=== PATIENT | female | born 2000 | race Two or more races ===

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

== ENCOUNTER 2018-02-20 14:50 | Emergency (ER) | payer SELFPAY ==
[~2018-02-20] VITALS: Ht 165.1 cm; Wt 89.8 kg
[~2018-02-20 14:50] MED LIST: AMOX1TAB61 PO; AZIT250T PO; HYDR-971 PO; LACT1CAP19 PO; ONDA4TAB10 SL; OXYC1TAB7 PO; PRED20TA PO; PROAIR HFA8.5 GM INH; SULF1TAB24 PO
[2018-02-20 15:22] VITALS: BP 134/66
[2018-02-20] MEDS ORDERED: ACET5SOL PO (15:39)
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
[2018-02-20] MEDS: DEXAMETHASONE SOD PHOS 4 MG/ML VIAL PO ONE (15:49)
[2018-02-20] MEDS: ACETAMINOPHEN/CODEINE 120/12MG 5 ML SOLUTION. PO ONE (15:49)
[2018-02-20] MEDS: cefTRIAXone IM 1 GM VIAL IM ONE (15:50)
[2018-02-20] MEDS ORDERED: AMOX250S20 PO (15:59)
== END 2018-02-20 16:06 | disposition home or self-care (01) ==
LOC: ER 14:50
DX: J02.9 Acute pharyngitis, unspecified (principal); J03.90 Acute tonsillitis, unspecified; R59.0 Localized enlarged lymph nodes; Z90.89 Acquired absence of other organs
CPT/HCPCS: 96372; 99283; J0696; J1100

== ENCOUNTER 2018-04-04 13:14 | Emergency (ER) | payer SELFPAY ==
[~2018-04-04] VITALS: Ht 165.1 cm; Wt 91.2 kg
[~2018-04-04 13:14] MED LIST changes: +ACET5SOL PO; +AMOX250S20 PO; +HYDR-3164 PO; -HYDR-971 PO
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
[2018-04-04 14:00] LABS: BILIRUBIN,URINE NEGATIVE (NEG); CLARITY,URINE CLEAR; COLOR,URINE YELLOW; NITRITE,URINE NEGATIVE (NEG); PROTEIN,URINE NEGATIVE (NEG-TRACE); UROBILINOGEN,URINE 0.2 mg/dL (0.2 mg/dL)
[2018-04-04] MEDS ORDERED: fentaNYL PF VIAL 100 MCG/2 ML VIAL IV ONE (14:00)
[2018-04-04] MEDS ORDERED: IV NORMAL SALINE 1000ML BAG 1,000 ML IV ONE (14:00)
[2018-04-04] MEDS ORDERED: ONDANSETRON PF 4 MG/2 ML VIAL. IM ONE (14:00)
[2018-04-04] MEDS ORDERED: CONTRAST GIVEN. MC PRN (14:00)
[2018-04-04 14:14] LABS: BACTERIA,URINE FEW /HPF (0-FEW); RBC,URINE OCC /HPF (0-2); SQUAMOUS EPITHELIAL CELL,UR MOD /LPF; WBC,URINE 0 /HPF (0-4)
[2018-04-04] MEDS ORDERED: ONDANSETRON PF 4 MG/2 ML VIAL. IV ONE (14:30)
[2018-04-04] MEDS ORDERED: IOHEXOL 300 MG/ML 100ML VIAL. IV ONE (14:30)
[2018-04-04 14:33] LABS: BASO % 0 % (0-3); EOS # 0.1 x10^3/uL (0.0-0.7); EOS % 1 % (0-3); HEMATOCRIT 35.2 % (36.0-47.0); HEMOGLOBIN 12.1 g/dL (12.0-15.5); LYMPH # 1.4 x10^3/uL (1.0-4.8); LYMPH % 13 % (24-48); MEAN CORPUSCULAR HEMOGLOBIN 29 pg (25-35); MEAN CORPUSCULAR HGB CONC 34 g/dL (31-37); MEAN CORPUSCULAR VOLUME 83 fL (79-100); MONO # 0.9 x10^3/uL (0.0-1.1); MONO % 8 % (0-9); NEUT # 8.6 x10^3uL (1.8-7.7); NEUT % 78 % (31-73); PLATELET COUNT 418 x10^3/uL (140-400); RED BLOOD COUNT 4.22 x10^6/uL (3.50-5.40); RED CELL DISTRIBUTION WIDTH 14.1 % (11.5-14.5)
[2018-04-04 14:42] LABS: PROTHROMBIN TIME PATIENT 14.4 SEC (11.7-14.0)
[2018-04-04 14:43] LABS: CALCIUM 9.5 mg/dL (8.5-10.1); CREATININE 0.7 mg/dL (0.6-1.0); GFR 107.8; POTASSIUM 3.6 mmol/L (3.5-5.1)
[2018-04-04 14:49] LABS: ALBUMIN 3.9 g/dL (3.4-5.0); ALBUMIN/GLOBULIN RATIO 0.8 (1.0-1.7); TOTAL BILIRUBIN 0.3 mg/dL (0.2-1.0); TOTAL PROTEIN 8.6 g/dL (6.4-8.2)
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
[2018-04-04] MEDS ORDERED: CYCL10TA2 PO (16:05)
[2018-04-04] MEDS ORDERED: HYDR-3164 PO (16:05)
[2018-04-04] MEDS ORDERED: ONDA4TAB7 PO (16:05)
[2018-04-04 16:15] VITALS: BP 111/62
== END 2018-04-04 16:17 | disposition home or self-care (01) ==
LOC: ER 13:14
DX: S62.174A Nondisplaced fracture of trapezium [larger multangular], right wrist, initial encounter for closed fracture (principal); S16.1XXA Strain of muscle, fascia and tendon at neck level, initial encounter; S80.02XA Contusion of left knee, initial encounter; S80.01XA Contusion of right knee, initial encounter; R10.84 Generalized abdominal pain; R11.2 Nausea with vomiting, unspecified; Z90.89 Acquired absence of other organs; V47.6XXA Car passenger injured in collision with fixed or stationary object in traffic accident, initial encounter; Y93.89 Activity, other specified; Y92.410 Unspecified street and highway as the place of occurrence of the external cause; Y99.8 Other external cause status
CPT/HCPCS: 29125; 36415; 72040; 73130; 74177; 80053; 81001; 81025; 85025; 85610; 87070; 87880; 96361; 96374; 96375; 99284; J2405; J3010; J7030; Q9967

== ENCOUNTER 2018-06-09 13:04 | Emergency (ER) | payer SELFPAY ==
[~2018-06-09] VITALS: Ht 165.1 cm; Wt 88.0 kg
[~2018-06-09 13:04] MED LIST changes: +ALBU2.5V8 INH; +CYCL10TA2 PO; +ONDA4TAB7 PO; -PROAIR HFA8.5 GM INH
[2018-06-09 13:09] VITALS: BP 135/86
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
[2018-06-09] MEDS ORDERED: IBUPROFEN 600 MG TABLET. PO ONE (13:30)
[2018-06-09] MEDS ORDERED: DEXAMETHASONE SOD PHOS 20 MG/5 ML VIAL. PO ONE (13:30)
[2018-06-09] MEDS ORDERED: ACETAMINOPHEN 500 MG TABLET PO ONE (13:30)
[2018-06-09 13:42] LABS: BILIRUBIN,URINE SMALL (NEG); CLARITY,URINE CLEAR; COLOR,URINE YELLOW; NITRITE,URINE NEGATIVE (NEG); PROTEIN,URINE 30 mg/dL (NEG-TRACE); UROBILINOGEN,URINE 0.2 mg/dL (0.2 mg/dL)
[2018-06-09 13:49] LABS: BACTERIA,URINE FEW /HPF (0-FEW); RBC,URINE OCC /HPF (0-2); SQUAMOUS EPITHELIAL CELL,UR OCC /LPF
[2018-06-09 14:01] LABS: INFLUENZA A PATIENT NEGATIVE (NEGATIVE); INFLUENZA B PATIENT NEGATIVE (NEGATIVE)
[2018-06-09] MEDS ORDERED: PRED20TA PO ×2 (14:26→14:28)
[2018-06-09] MEDS ORDERED: PENICILLIN G BENZATHINE LA 1,200,000 UNIT/2 ML DISP.SYRIN. IM ONE (14:30)
== END 2018-06-09 15:10 | disposition home or self-care (01) ==
LOC: ER 13:04
DX: J02.9 Acute pharyngitis, unspecified (principal); R53.83 Other fatigue; M79.18 Myalgia, other site; Z90.89 Acquired absence of other organs
CPT/HCPCS: 81001; 81025; 87070; 87804; 87880; 96372; 99284; J0561; J1100

== ENCOUNTER 2018-07-16 10:51 | Emergency (ER) | payer SELFPAY ==
[~2018-07-16] VITALS: Ht 162.6 cm; Wt 88.5 kg
[2018-07-16 11:20] VITALS: BP 118/78
[2018-07-16 11:57] LABS: BILIRUBIN,URINE NEGATIVE (NEG); CLARITY,URINE CLEAR; COLOR,URINE YELLOW; NITRITE,URINE NEGATIVE (NEG); PH,URINE 6.5; PROTEIN,URINE NEGATIVE (NEG-TRACE); UROBILINOGEN,URINE 0.2 mg/dL (0.2 mg/dL)
[2018-07-16] MEDS ORDERED: ONDANSETRON ODT 4 MG TAB.RAPDIS. PO ONE (12:00)
[2018-07-16] MEDS ORDERED: ACETAMINOPHEN 500 MG TABLET PO ONE (12:00)
[2018-07-16 12:06] LABS: BACTERIA,URINE MANY /HPF (0-FEW); SQUAMOUS EPITHELIAL CELL,UR MANY /LPF
[2018-07-16 12:17] LABS: INFLUENZA A PATIENT NEGATIVE (NEGATIVE); INFLUENZA B PATIENT NEGATIVE (NEGATIVE)
--- NOTE | 2018-07-16 12:53 | RAD ---
EXAM: Chest, 2 views. HISTORY: Fever. Flulike symptoms. COMPARISON: None. FINDINGS: 2 views of the chest are obtained. There is no infiltrate, pleural effusion or pneumothorax. The heart is normal in size. IMPRESSION: No acute pulmonary finding. Electronically signed by: Esperanza Reeves MD (07/16/2018 12:50 PM) [facility]
[2018-07-16] MEDS ORDERED: cefTRIAXone IM 250 MG VIAL IM ONE (14:00)
[2018-07-16] MEDS ORDERED: AZITHROMYCIN 250 MG TABLET. PO ONE (14:00)
--- NOTE | 2018-07-16 14:23 | PHYS DOC ---
Past Medical History Past Medical History: Other Additional Past Medical Histor: childhood asthma; MISCARRIAGE 04/2016 Past Surgical History: Appendectomy Alcohol Use: Occasionally Drug Use: Marijuana Adult General Chief Complaint Chief Complaint: FLU SYMPTOM HPI HPI Patient is a 17 year old female with no significant medical history who presents to the ED today complaining of subjective fevers, body aches, chills, cough and sore throat, symptoms for 4 days. Review of Systems Review of Systems Constitutional: Reports subjective fevers, body aches and chills Eyes: Denies change in visual acuity, redness, or eye pain [] HENT: Reports sore throat. Denies nasal congestion Respiratory: Reports cough, denies shortness of breath [] Cardiovascular: No additional information not addressed in HPI [] GI: Denies abdominal pain, nausea, vomiting, bloody stools or diarrhea [] : Denies dysuria or hematuria [] Musculoskeletal: Denies back pain or joint pain [] Integument: Denies rash or skin lesions [] Neurologic: Denies headache, focal weakness or sensory changes [] All other systems were reviewed and found to be within normal limits, except as documented in this note. Current Medications Current Medications Current Medications Medications (Trade) Dose Ordered Sig/Delia Start Time Stop Time Status Last Admin Dose Admin Acetaminophen (Tylenol) 1,000 mg 1X ONCE 07/16/18 12:00 07/16/18 12:01 DC 07/16/18 12:17 1,000 MG Azithromycin (Zithromax) 1,000 mg 1X ONCE 07/16/18 14:00 07/16/18 14:01 DC 07/16/18 13:58 1,000 MG Ceftriaxone Sodium (Rocephin Im) 250 mg 1X ONCE 07/16/18 14:00 07/16/18 14:01 DC 07/16/18 13:58 250 MG Ondansetron HCl (Zofran Odt) 4 mg 1X ONCE 07/16/18 12:00 07/16/18 12:01 DC 07/16/18 12:18 4 MG Allergies Allergies Allergies Coded Allergies Type Severity Reaction Last Updated Verified No Known Drug Allergies 09/23/15 No Physical Exam Physical Exam Constitutional: Well developed, well nourished, no acute distress, non-toxic appearance. [] HENT: Normocephalic, atraumatic, bilateral external ears normal, oropharynx moist, no oral exudates, nose normal. [] Eyes: PERRLA, EOMI, conjunctiva normal, no discharge. [] Neck: Normal range of motion, no tenderness, supple, no stridor. [] Cardiovascular:Heart rate regular rhythm, no murmur [] Lungs & Thorax: Bilateral breath sounds clear to auscultation [] Abdomen: Bowel sounds normal, soft, no tenderness, no masses, no pulsatile masses. [] Skin: Warm, dry, no erythema, no rash. [] Back: No tenderness, no CVA tenderness. [] Extremities: No tenderness, no cyanosis, no clubbing, ROM intact, no edema. [] Neurologic: Alert and oriented X 3, normal motor function, normal sensory function, no focal deficits noted. [] Psychologic: Affect normal, judgement normal, mood normal. [] Current Patient Data Vital Signs Vital Signs Date Time Temp Pulse Resp B/P (MAP) Pulse Ox O2 Delivery O2 Flow Rate FiO2 07/16/18 11:20 102.2 126 20 118/78 (91) 98 Room Air 102.2 Lab Values Laboratory Tests Test 07/16/18 11:41 07/16/18 11:42 07/16/18 11:45 07/16/18 11:48 Urine Collection Type Unknown Urine Color Yellow Urine Clarity Clear Urine pH 6.5 Urine Specific [place] 1.015 Urine Protein Negative mg/dL (NEG-TRACE) Urine Glucose (UA) Negative mg/dL (NEG) Urine Ketones (Stick) Negative mg/dL (NEG) Urine Blood Moderate (NEG) Urine Nitrite Negative (NEG) Urine Bilirubin Negative (NEG) Urine Urobilinogen Dipstick 0.2 mg/dL (0.2 mg/dL) Urine Leukocyte Esterase Small (NEG) Urine RBC 6-10 /HPF (0-2) Urine WBC 5-10 /HPF (0-4) Urine Squamous Epithelial Cells Many /LPF Urine Bacteria Many /HPF (0-FEW) Urine Mucus Mod /LPF POC Urine HCG, Qualitative Hcg negative (Negative) Influenza Type A Antigen Negative (NEGATIVE) Influenza Type B Antigen Negative (NEGATIVE) Group A Streptococcus Rapid Negative (NEGATIVE) EKG EKG [] Radiology/Procedures Radiology/Procedures [] Course & Med Decision Making Course & Med Decision Making Pertinent Labs and Imaging studies reviewed. (See chart for details) This is a 17-year-old. Presenting to the ED today complaining of fever, body aches, chills, cough, sore throat symptoms for 4 days, temperature on arrival to the ED 102.2. Patient was given 1 g of Tylenol. Negative influenza A or B, negative chest x-ray, urine analysis appears contaminated. When I went to give patient results, she states she received a letter informing her she has chlamydia and was not treated. Patient was given standard STD treatment for chlamydia. She was instructed to contact all her partners and ask them to seek treatment too. Follow-up with her PCP as needed. Dragon Disclaimer Dragon Disclaimer This electronic medical record was generated, in whole or in part, using a voice recognition dictation system. Departure Departure Impression: Primary Impression: Fever Additional Impressions: Cough Body aches Acute viral pharyngitis Sexually transmitted disease (STD) Disposition: 01 HOME, SELF-CARE Condition: STABLE Referrals: UNKNOWN PCP NAME (PCP) follow up with your doctor in 1-2 weeks Patient Instructions: Cough, Adult, Fever, Adult, Sexually Transmitted Disease , Viral Pharyngitis Additional Instructions: You were seen for viral-like illness including body aches, sore throat, fever, cough. This symptoms will run their own course. You were also treated for chlamydia, as discussed you cannot have sex for one week, you must contact all your sex partners, let them know you were treated for STDs and ask them to seek treatment too. Follow-up with your doctor in 1-2 weeks as needed. Problem Qualifiers Primary Impression: Fever Fever type: unspecified Qualified Codes: R50.9 - Fever, unspecified WAI SYLVESTER APRN Jul 16, 2018 14:23
== END 2018-07-16 14:40 | disposition home or self-care (01) ==
LOC: ER 10:51
DX: J02.8 Acute pharyngitis due to other specified organisms (principal); B97.89 Other viral agents as the cause of diseases classified elsewhere; M79.18 Myalgia, other site; R50.9 Fever, unspecified; A64 Unspecified sexually transmitted disease; Z90.89 Acquired absence of other organs
CPT/HCPCS: 71046; 81001; 81025; 87070; 87086; 87804; 87880; 96372; 99284; J0696; Q0144; Q0162

== ENCOUNTER 2019-01-14 11:28 | Emergency (ER) | payer SELFPAY ==
[~2019-01-14] VITALS: Ht 162.6 cm; Wt 88.5 kg
[2019-01-14 13:50] VITALS: BP 126/61
[2019-01-14 14:10] LABS: BILIRUBIN,URINE NEGATIVE (NEG); CLARITY,URINE CLEAR; COLOR,URINE YELLOW; NITRITE,URINE NEGATIVE (NEG); PROTEIN,URINE NEGATIVE (NEG-TRACE); UROBILINOGEN,URINE 0.2 mg/dL (0.2 mg/dL)
[2019-01-14 14:20] LABS: BACTERIA,URINE FEW /HPF (0-FEW); RBC,URINE RARE /HPF (0-2); SQUAMOUS EPITHELIAL CELL,UR MOD /LPF; WBC,URINE OCC /HPF (0-4)
--- NOTE | 2019-01-14 15:04 | PHYS DOC ---
Past Medical History Past Medical History: Asthma, Other Additional Past Medical Histor: MISCARRIAGE 04/2016 Past Surgical History: Appendectomy Alcohol Use: Occasionally Drug Use: Marijuana Adult General Chief Complaint Chief Complaint: ABDOMINAL PAIN HPI HPI Patient is a 18 year old female who presents to the ED today requesting a test, patient states she has not had a cycle for 2 months. She states occasionally she has lower abdominal pain. Denies any unusual vaginal discharge and concern for STDs. Review of Systems Review of Systems Constitutional: Denies fever or chills [] Eyes: Denies change in visual acuity, redness, or eye pain [] HENT: Denies nasal congestion or sore throat [] Respiratory: Denies cough or shortness of breath [] Cardiovascular: No additional information not addressed in HPI [] GI: Reports concern for , lack of menstrual cycle, lower abdominal pain, denies nausea, vomiting, bloody stools or diarrhea [] : Denies dysuria or hematuria [] Musculoskeletal: Denies back pain or joint pain [] Integument: Denies rash or skin lesions [] Neurologic: Denies headache, focal weakness or sensory changes [] All other systems were reviewed and found to be within normal limits, except as documented in this note. Allergies Allergies Allergies Coded Allergies Type Severity Reaction Last Updated Verified No Known Drug Allergies 09/23/15 No Physical Exam Physical Exam Constitutional: Well developed, well nourished, no acute distress, non-toxic appearance. [] HENT: Normocephalic, atraumatic, bilateral external ears normal, oropharynx m oist, no oral exudates, nose normal. [] Eyes: PERRLA, EOMI, conjunctiva normal, no discharge. [] Neck: Normal range of motion, no tenderness, supple, no stridor. [] Cardiovascular:Heart rate regular rhythm, no murmur [] Lungs & Thorax: Bilateral breath sounds clear to auscultation [] Abdomen: Bowel sounds normal, soft, no tenderness, no masses, no pulsatile masses. [] Skin: Warm, dry, no erythema, no rash. [] Back: No tenderness, no CVA tenderness. [] Extremities: No tenderness, no cyanosis, no clubbing, ROM intact, no edema. [] Neurologic: Alert and oriented X 3, normal motor function, normal sensory function, no focal deficits noted. [] Psychologic: Affect normal, judgement normal, mood normal. [] Current Patient Data Vital Signs Vital Signs Date Time Temp Pulse Resp B/P (MAP) Pulse Ox O2 Delivery O2 Flow Rate FiO2 01/14/19 13:50 98.0 85 16 126/61 (82) 97 Room Air 98.0 Lab Values Laboratory Tests Test 01/14/19 13:45 01/14/19 13:52 Urine Collection Type Unknown Urine Color Yellow Urine Clarity Clear Urine pH 7.0 Urine Specific [place] 1.015 Urine Protein Negative mg/dL (NEG-TRACE) Urine Glucose (UA) Negative mg/dL (NEG) Urine Ketones (Stick) Negative mg/dL (NEG) Urine Blood Negative (NEG) Urine Nitrite Negative (NEG) Urine Bilirubin Negative (NEG) Urine Urobilinogen Dipstick 0.2 mg/dL (0.2 mg/dL) Urine Leukocyte Esterase Negative (NEG) Urine RBC Rare /HPF (0-2) Urine WBC Occ /HPF (0-4) Urine Squamous Epithelial Cells Mod /LPF Urine Bacteria Few /HPF (0-FEW) Urine Mucus Slight /LPF POC Urine HCG, Qualitative Hcg negative (Negative) EKG EKG [] Radiology/Procedures Radiology/Procedures [] Course & Med Decision Making Course & Med Decision Making Pertinent Labs and Imaging studies reviewed. (See chart for details) This is a 18-year-old female patient who presents to the ED today requesting a test, she has not had a cycle for 2 months. Urine hCG is negative, urine analysis is negative for infection. Discharged to home. Provided GATHERING MACHINE SETTER to follow-up with. Alicia Disclaimer Alicia Disclaimer This electronic medical record was generated, in whole or in part, using a voice recognition dictation system. Departure Departure Impression: Primary Impression: Amenorrhea, secondary Additional Impression: test negative Disposition: HOME, SELF-CARE Condition: STABLE Referrals: UNKNOWN PCP NAME (PCP) STEFFANIE LAND MD follow up next week Patient Instructions: Athletic Amenorrhea-[facility] Additional Instructions: Your test in the emergency room is negative. Please follow-up with the GATHERING MACHINE SETTER provided concerning your menstrual cycles. Problem Qualifiers CASSANDRAQUINTONDanielleWAI ELMER Jan 14, 2019 15:04
== END 2019-01-14 15:16 | disposition home or self-care (01) ==
LOC: ER 11:28
DX: Z32.02 Encounter for pregnancy test, result negative (principal); N91.2 Amenorrhea, unspecified; J45.909 Unspecified asthma, uncomplicated; Z90.89 Acquired absence of other organs
CPT/HCPCS: 81001; 81025; 99283

== ENCOUNTER 2019-03-04 13:12 | Emergency (ER) | payer SELFPAY ==
[~2019-03-04] VITALS: Ht 162.6 cm; Wt 93.4 kg
[2019-03-04 14:22] VITALS: BP 134/62
--- NOTE | 2019-03-04 15:19 | PHYS DOC ---
Past Medical History Past Medical History: Asthma, Other Additional Past Medical Histor: MISCARRIAGE 04/2016 Past Surgical History: Appendectomy Alcohol Use: Occasionally Drug Use: Marijuana Adult General Chief Complaint Chief Complaint: MULTIPLE COMPLAINTS [facility] Patient is a 18 year old female, accompanied by her significant other, who presents to the emergency room with complaints of diarrhea and a fever at home for the last 2 days. Patient reports concern because she states she just found out she is . She denies any vaginal bleeding, abdominal pain, dysuria, hematuria, or irregular vaginal discharge. Patient states she has also had nausea and vomiting for several days. She has been able to tolerate Gatorade and crackers. Patient denies any cough, shortness of breath, wheezing, dizziness, dysuria, hematuria, or low back pain. She reports her last menstrual cycle was in January of 2019. All other ROS is neg unless otherwise noted in HPI. Review of Systems Review of Systems See Above Allergies Allergies Allergies Coded Allergies Type Severity Reaction Last Updated Verified No Known Drug Allergies 09/23/15 No Physical Exam Physical Exam See Above Constitutional: Well developed, well nourished, no acute distress, non-toxic appearance. [] HENT: Normocephalic, atraumatic, bilateral external ears normal, oropharynx moist, moist mucous membranes no oral exudates, nose normal. [] Eyes: PERRLA, EOMI, conjunctiva normal, no discharge. [] Neck: Normal range of motion, no tenderness, supple, no stridor. [] Cardiovascular:Heart rate regular rhythm, no murmur [] Lungs & Thorax: Bilateral breath sounds clear to auscultation [] Skin: Warm, dry, no erythema, no rash. [] Back: No tenderness Extremities: No cyanosis, ROM intact Neurologic: Alert and oriented X 3, no focal deficits noted. [] Psychologic: Affect normal, judgement normal, mood normal. [] Current Patient Data Vital Signs Vital Signs Date Time Temp Pulse Resp B/P (MAP) Pulse Ox O2 Delivery O2 Flow Rate FiO2 03/04/19 14:22 98.8 70 20 134/62 (86) 100 Room Air 98.8 EKG EKG [] Radiology/Procedures Radiology/Procedures [] Course & Med Decision Making Course & Med Decision Making Pertinent Labs and Imaging studies reviewed. (See chart for details) dx: medical screening exam A medical screening exam was performed, patient was found to have no emergent medical condition. The plan of care would've included diet instructions and a prescription for zofran. Pt was eating ice chips in the room with no vomiting . However, the patient eloped. [] Dragon Disclaimer Dragon Disclaimer This electronic medical record was generated, in whole or in part, using a voice recognition dictation system. Departure Departure Impression: Primary Impression: Encounter for medical screening examination Disposition: HOME, SELF-CARE Condition: STABLE Referrals: UNKNOWN PCP NAME (PCP) BENJIE PENG COTTON WASHER Mar 04, 2019 15:19
== END 2019-03-04 14:45 | disposition home or self-care (01) ==
LOC: ER 13:12
DX: O21.9 Vomiting of pregnancy, unspecified (principal); R19.7 Diarrhea, unspecified; R50.9 Fever, unspecified; O99.511 Diseases of the respiratory system complicating pregnancy, first trimester; J45.909 Unspecified asthma, uncomplicated; Z90.89 Acquired absence of other organs; Z3A.00 Weeks of gestation of pregnancy not specified
CPT/HCPCS: 99283

== ENCOUNTER 2019-05-16 00:33 | Inpatient (IN) | payer OTHER ==
[~2019-05-16] VITALS: Ht 162.6 cm; Wt 96.6 kg
[2019-05-16] MEDS ORDERED: diphenhydrAMINE 50 MG/ML VIAL IVP ONE (02:30)
[2019-05-16] MEDS ORDERED: METOCLOPRAMIDE HCL 10 MG/2 ML VIAL. IVP ONE (02:30)
[2019-05-16] MEDS ORDERED: IV NORMAL SALINE 1000ML BAG 1,000 ML IV SCH (02:30)
[2019-05-16 02:57] LABS: BASO % 0 % (0-3); EOS % 0 % (0-3); HEMATOCRIT 32.4 % (36.0-47.0); LYMPH # 1.7 x10^3/uL (1.0-4.8); LYMPH % 12 % (24-48); MEAN CORPUSCULAR HEMOGLOBIN 29 pg (25-35); MEAN CORPUSCULAR HGB CONC 34 g/dL (31-37); MEAN CORPUSCULAR VOLUME 85 fL (79-100); MONO # 0.5 x10^3/uL (0.0-1.1); MONO % 4 % (0-9); NEUT # 11.9 x10^3/uL (1.8-7.7); NEUT % 84 % (31-73); PLATELET COUNT 458 x10^3/uL (140-400); RED BLOOD COUNT 3.81 x10^6/uL (3.50-5.40); WHITE BLOOD COUNT 14.2 x10^3/uL (4.0-11.0)
[2019-05-16 03:13] LABS: CALCIUM 9.3 mg/dL (8.5-10.1); CREATININE 0.4 mg/dL (0.6-1.0); GFR 203.5; POTASSIUM 3.6 mmol/L (3.5-5.1)
[2019-05-16 03:19] LABS: ALBUMIN 3.2 g/dL (3.4-5.0); ALBUMIN/GLOBULIN RATIO 0.7 (1.0-1.7); TOTAL BILIRUBIN 0.2 mg/dL (0.2-1.0); TOTAL PROTEIN 7.5 g/dL (6.4-8.2)
--- NOTE | 2019-05-16 03:50 | PHYS DOC ---
Past Medical History Past Medical History: Asthma, Other Additional Past Medical Histor: MISCARRIAGE 04/2016 Past Surgical History: Appendectomy Alcohol Use: Occasionally Drug Use: Marijuana Adult General Chief Complaint Chief Complaint: VOMITING IN HPI HPI Patient is a 18 year old female who presents with complaint of nausea and vomiting for the last few weeks. Patient states that over the last 24-hour she has thrown up at least 20 times. Patient states that she was seen yesterday, was given some Zofran and then discharged home. Patient states that she has been taking the medication at home but has not been able to keep anything down despite taking medication. She states that she has tried water, Sprite, tucker olesya, etc. without been able to keep anything down. She states that she is starting to get sore in her upper abdomen from all the throwing up. She denies any pelvic pain or vaginal bleeding.[] Review of Systems Review of Systems Constitutional: Denies fever or chills [] Respiratory: Denies cough or shortness of breath [] Cardiovascular: No additional information not addressed in HPI [] GI: Lit's of nausea and vomiting without diarrhea [] : Denies dysuria or hematuria [] Neurologic: Denies headache, focal weakness or sensory changes [] All other systems were reviewed and found to be within normal limits, except as documented in this note. Current Medications Current Medications Current Medications Medications (Trade) Dose Ordered Sig/Delia Start Time Stop Time Status Last Admin Dose Admin Diphenhydramine HCl (Benadryl) 25 mg 1X ONCE 05/16/19 02:30 05/16/19 02:31 DC 05/16/19 02:49 25 MG Metoclopramide HCl (Reglan Vial) 10 mg 1X ONCE 05/16/19 02:30 05/16/19 02:31 DC 05/16/19 02:50 10 MG Sodium Chloride 1,000 ml @ 1,000 mls/hr Q1H 05/16/19 02:30 05/16/19 03:29 DC 05/16/19 02:30 1,000 MLS/HR Allergies Allergies Allergies Coded Allergies Type Severity Reaction Last Updated Verified No Known Drug Allergies 09/23/15 No Physical Exam Physical Exam Constitutional: Well developed, well nourished, no acute distress, non-toxic appearance. [] HENT: Normocephalic, atraumatic, bilateral external ears normal, oropharynx moist, no oral exudates, nose normal. [] Eyes: PERRLA, EOMI, conjunctiva normal, no discharge. [] Neck: Normal range of motion, no tenderness, supple, no stridor. [] Cardiovascular: Regular rate and rhythm[] Lungs & Thorax: Bilateral breath sounds clear to auscultation [] Abdomen: Bowel sounds normal, soft, with epigastric tenderness. [] Skin: Warm, dry, no erythema, no rash. [] Extremities: No tenderness, no cyanosis, no clubbing, ROM intact, no edema. [] Neurologic: Alert and oriented X 3, no focal deficits noted. [] Current Patient Data Vital Signs Vital Signs Date Time Temp Pulse Resp B/P (MAP) Pulse Ox O2 Delivery O2 Flow Rate FiO2 05/16/19 02:02 97.5 105 14 133/70 (91) 100 Room Air 97.5 Lab Values Laboratory Tests Test 05/16/19 02:50 White Blood Count 14.2 x10^3/uL (4.0-11.0) H Red Blood Count 3.81 x10^6/uL (3.50-5.40) Hemoglobin 11.0 g/dL (12.0-15.5) L Hematocrit 32.4 % (36.0-47.0) L Mean Corpuscular Volume 85 fL (79-100) Mean Corpuscular Hemoglobin 29 pg (25-35) Mean Corpuscular Hemoglobin Concent 34 g/dL (31-37) Red Cell Distribution Width 14.0 % (11.5-14.5) Platelet Count 458 x10^3/uL (140-400) H Neutrophils (%) (Auto) 84 % (31-73) H Lymphocytes (%) (Auto) 12 % (24-48) L Monocytes (%) (Auto) 4 % (0-9) Eosinophils (%) (Auto) 0 % (0-3) Basophils (%) (Auto) 0 % (0-3) Neutrophils # (Auto) 11.9 x10^3/uL (1.8-7.7) H Lymphocytes # (Auto) 1.7 x10^3/uL (1.0-4.8) Monocytes # (Auto) 0.5 x10^3/uL (0.0-1.1) Eosinophils # (Auto) 0.0 x10^3/uL (0.0-0.7) Basophils # (Auto) 0.0 x10^3/uL (0.0-0.2) Sodium Level 139 mmol/L (136-145) Potassium Level 3.6 mmol/L (3.5-5.1) Chloride Level 102 mmol/L (98-107) Carbon Dioxide Level 25 mmol/L (21-32) Anion Gap 12 (6-14) Blood Urea Nitrogen 5 mg/dL (7-20) L Creatinine 0.4 mg/dL (0.6-1.0) L Estimated GFR (Cockcroft-Gault) 203.5 BUN/Creatinine Ratio 13 (6-20) Glucose Level 92 mg/dL (70-99) Calcium Level 9.3 mg/dL (8.5-10.1) Total Bilirubin 0.2 mg/dL (0.2-1.0) Aspartate Amino Transferase (AST) 8 U/L (15-37) L Alanine Aminotransferase (ALT) 16 U/L (14-59) Alkaline Phosphatase 59 U/L (46-116) Total Protein 7.5 g/dL (6.4-8.2) Albumin 3.2 g/dL (3.4-5.0) L Albumin/Globulin Ratio 0.7 (1.0-1.7) L Lipase 68 U/L (73-393) L Laboratory Tests 05/16/19 02:50 Laboratory Tests 05/16/19 02:50 EKG EKG [] Radiology/Procedures Radiology/Procedures [] Course & Med Decision Making Course & Med Decision Making Pertinent Labs and Imaging studies reviewed. (See chart for details) [] Dragon Disclaimer Dragon Disclaimer This electronic medical record was generated, in whole or in part, using a voice recognition dictation system. Departure Departure Impression: Primary Impression: Hyperemesis gravidarum Disposition: ADMITTED INPATIENT Condition: IMPROVED Referrals: UNKNOWN PCP NAME (PCP) MORELIA SWAN Jr. DO May 16, 2019 03:50
[2019-05-16] MEDS ORDERED: ONDANSETRON PF 4 MG/2 ML VIAL. IV PRN ×2 (04:00→04:30)
[2019-05-16] MEDS ORDERED: IV RINGERS,LACTATED 1000ML 1,000 ML IV ONE ×2 (04:00→04:30)
--- NOTE | 2019-05-16 04:30 | NUR ---
The patient, MARI JUNIOR, 18 y/o, F admitted by NANO NEIL Jr, MD, was given information regarding hospital policies, unit procedures and contact persons. Valuables were checked and left with patient. patient is resting with call light within reach and family at bedside.
[2019-05-16] MEDS: IV RINGERS,LACTATED 1000ML 1,000 ML IV SCH ×2 (05:00→08:37)
[2019-05-16] MEDS ORDERED: ONDANSETRON PF 4 MG/2 ML VIAL. IVP PRN ×2 (05:00→05:30)
[2019-05-16] MEDS ORDERED: METOCLOPRAMIDE HCL 10 MG/2 ML VIAL. IVP PRN (05:00)
[2019-05-16] MEDS ORDERED: ONDANSETRON ODT 4 MG TAB.RAPDIS. PO PRN (05:00)
[2019-05-16 05:20] VITALS: BP 116/72
[2019-05-16] MEDS: ACETAMINOPHEN 500 MG TABLET PO PRN ×2 (10:15→16:10)
[2019-05-16 11:23] VITALS: BP 103/59
--- NOTE | 2019-05-16 14:41 | PDOC1 ---
OB - History Hx of Present Care: Limited Care Ultrasounds: Other (nml first trimester sono) Obstetrical Complications: Hyperemesis Medical Complications: None Past Family/Social History * Past Medical, Surgical, Family and Obstetric Histories reviewed from chart. Rubella: Immune RPR/VDRL: Negative GBS Status: Unknown HBsAG: Negative OB - Chief Complaint & HPI Date of Admission: Date of Admission: May 16, 2019 at 03:48 Chief Complaint/History : 2 Para: 0 EGA: 14 Reason for admission: observation, other (Hyperemesis ) Admission Nurse Assessment Rev: Yes OB - Admission Exam Physical Exam Vitals: VS - Last 72 Hours, by Label Date Time Temp Pulse Resp B/P (MAP) Pulse Ox O2 Delivery O2 Flow Rate FiO2 05/16/19 11:23 98.4 87 16 103/59 (74) 98 Room Air 98.4 05/16/19 05:20 97.8 94 18 116/72 (87) 99 Room Air 97.8 05/16/19 02:28 105 14 173/66 (101) 98 Room Air 05/16/19 02:02 97.5 105 14 133/70 (91) 100 Room Air 97.5 HEENT: Other (mucous membranes dry) Lungs: Clear Abdomen: Gravid, Non tender, Soft Extremities: No tenderness or swelling Reflexes: Normal Cervical Dilatation: None Effacement: 0% Station: Ballotable Membranes: Intact Heart Rate: Normal Accelerations: Accelerations Present Decelerations: No decelerations Contractions on Admission: None Text A: 14 wks IUP Hyperemesis Gravidarum P: Observation and rehydration IV fluids. D/c home when tolerating regular diet. NANO NEIL Jr, MD May 16, 2019 14:41
[2019-05-16] MEDS ORDERED: ONDA4VIA7 PO (14:44)
[2019-05-16] MEDS ORDERED: METO5VIA4 PO (14:44)
--- NOTE | 2019-05-16 14:44 | DISCH ---
DISCHARGE INSTRUCTIONS Condition on Discharge Condition on Discharge: Stable Activity After Discharge Activity Instructions for Disc: Activity as tolerated Lifting Instructions after Dis: No heavy lifting Exercise Instruction after Dis: Progress as tolerated Driving Instructions after Dis: Do not drive today Weight Bearing Status after Di: As tolerated Diet after Discharge Diet after Discharge: Regular Diet Texture: Regular Wound Incision Care Wound/Incision Care: May get incision wet Contacting the DRAlyce after DC Call your doctor for: If your condition worsens Follow-Up Follow up with: Dr. Hudson in 2 wks Treatment/Equipment after DC Adaptive Equipment Issued: None NANO HUDSON Jr, MD May 16, 2019 14:44
[2019-05-16 16:23] VITALS: BP 102/67
--- NOTE | 2019-05-16 16:25 | NUR ---
Discharge Discharge instructions given to patient at this time. NO questions or concerns noted. To follow up with DR Hudson in 2 weeks. Patient to have dinner then discharge home with family. Will continue to monitor.
== END 2019-05-16 17:39 | disposition home or self-care (01) | DRG 833 ==
LOC: ER 00:33 → 3 NORTH 03:48 → ER 04:13 → 3 NORTH 14:18
PROVIDERS: ADMIT Obstetrics & Gynecology; ATTEND Obstetrics & Gynecology
DX: O21.0 Mild hyperemesis gravidarum (principal); Z3A.14 14 weeks gestation of pregnancy; J45.909 Unspecified asthma, uncomplicated; O99.511 Diseases of the respiratory system complicating pregnancy, first trimester; Z90.49 Acquired absence of other specified parts of digestive tract
CPT/HCPCS: 36415; 80053; 83690; 85025; 96361; 96374; 96375; J1200; J2405; J2765; J7030; J7120; 99285-25; G0378

== ENCOUNTER 2019-06-03 04:59 | Emergency (ER) | payer OTHER ==
[~2019-06-03] VITALS: Ht 162.6 cm; Wt 96.8 kg
[~2019-06-03 04:59] MED LIST changes: +METO5VIA4 PO; +ONDA4VIA7 PO
--- NOTE | 2019-06-03 05:19 | PHYS DOC ---
Past Medical History Past Medical History: Asthma, Other Additional Past Medical Histor: MISCARRIAGE 04/2016 (TAHIR BRANDT DO) Past Surgical History: Appendectomy (TAHIR BRANDT DO) Smoking Status: Never Smoker Alcohol Use: Occasionally Drug Use: Marijuana (TAHIR BRANDT DO) Adult General Chief Complaint Chief Complaint: VOMITING IN HPI HPI 18-year-old female A1 who is approximate 17 weeks presents with a chief complaint of nausea and vomiting. Patient states she has been vomiting her entire . States this evening had some bright red blood in her emesis. Patient denies any vaginal bleeding. Patient also states she has had suicidal thoughts. Patient states the father of her baby contacted her this evening. She states she has not spoke to him during the entire . Patient states she is suicidal but does not have a plan. She states she has a history of bipolar and has been admitted to psychiatric facility. Patient denies any previous suicidal attempts. (TAHIR BRANDT DO) Review of Systems Review of Systems Constitutional: Denies fever or chills [] Eyes: Denies change in visual acuity, redness, or eye pain [] HENT: Denies nasal congestion or sore throat [] Respiratory: Denies cough or shortness of breath [] Cardiovascular: No additional information not addressed in HPI [] GI: Denies abdominal pain, Positive nausea andvomiting, No bloody stools or diarrhea [] : Denies dysuria or hematuria [Positive ] Musculoskeletal: Denies back pain or joint pain [] Integument: Denies rash or skin lesions [] Neurologic: Denies headache, focal weakness or sensory changes [] Endocrine: Denies polyuria or polydipsia [] Psych- Positive SI All other systems were reviewed and found to be within normal limits, except as documented in this note. (TAHIR BRANDT DO) Current Medications Current Medications Current Medications Medications (Trade) Dose Ordered Sig/Delia Start Time Stop Time Status Last Admin Dose Admin Acetaminophen (Tylenol) 1,000 mg 1X ONCE 06/03/19 07:15 06/03/19 07:16 DC 06/03/19 07:08 1,000 MG Ondansetron HCl (Zofran) 4 mg 1X ONCE 06/03/19 05:30 06/03/19 05:31 DC 06/03/19 05:29 4 MG Sodium Chloride 1,000 ml @ 1,000 mls/hr 1X ONCE 06/03/19 07:00 06/03/19 07:59 DC 06/03/19 07:08 1,000 MLS/HR (SEBASTIÁN LOPES MD) Allergies Allergies Allergies Coded Allergies Type Severity Reaction Last Updated Verified No Known Drug Allergies 09/23/15 No (SEBASTIÁN LOPES MD) Physical Exam Physical Exam Constitutional: Well developed, well nourished, no acute distress, non-toxic appearance. [] HENT: Normocephalic, atraumatic, bilateral external ears normal, oropharynx moist, no oral exudates, nose normal. [] Eyes: PERRLA, EOMI, conjunctiva normal, no discharge. [] Neck: Normal range of motion, no tenderness, supple, no stridor. [] Cardiovascular:tachycardia Lungs & Thorax: Bilateral breath sounds clear to auscultation [] Abdomen: Bowel sounds normal, soft, no tenderness, no masses, no pulsatile masses. [] Skin: Warm, dry, no erythema, no rash. [] Back: No tenderness, no CVA tenderness. [] Extremities: No tenderness, no cyanosis, no clubbing, ROM intact, no edema. [] Neurologic: Alert and oriented X 3, normal motor function, normal sensory function, no focal deficits noted. [] Psychologic: Affect normal, judgement normal, [Suicidal thoughts with no plan] - heart tones 151bpm (RIKKI,TAHIR I DO) Current Patient Data Vital Signs Vital Signs Date Time Temp Pulse Resp B/P (MAP) Pulse Ox O2 Delivery O2 Flow Rate FiO2 06/03/19 07:30 111 111/57 (75) 98 Room Air 06/03/19 06:00 16 06/03/19 05:09 97.1 97.1 (SEBASTIÁN LOPES MD) Lab Values Laboratory Tests Test 06/03/19 05:04 06/03/19 05:57 White Blood Count 10.2 x10^3/uL (4.0-11.0) Red Blood Count 3.63 x10^6/uL (3.50-5.40) Hemoglobin 10.5 g/dL (12.0-15.5) L Hematocrit 30.8 % (36.0-47.0) L Mean Corpuscular Volume 85 fL (79-100) Mean Corpuscular Hemoglobin 29 pg (25-35) Mean Corpuscular Hemoglobin Concent 34 g/dL (31-37) Red Cell Distribution Width 13.7 % (11.5-14.5) Platelet Count 384 x10^3/uL (140-400) Neutrophils (%) (Auto) 84 % (31-73) H Lymphocytes (%) (Auto) 8 % (24-48) L Monocytes (%) (Auto) 7 % (0-9) Eosinophils (%) (Auto) 1 % (0-3) Basophils (%) (Auto) 0 % (0-3) Neutrophils # (Auto) 8.6 x10^3/uL (1.8-7.7) H Lymphocytes # (Auto) 0.8 x10^3/uL (1.0-4.8) L Monocytes # (Auto) 0.7 x10^3/uL (0.0-1.1) Eosinophils # (Auto) 0.1 x10^3/uL (0.0-0.7) Basophils # (Auto) 0.0 x10^3/uL (0.0-0.2) Maternal Serum HCG Beta Subunit 72241 mIU/mL (0-5) H Sodium Level 139 mmol/L (136-145) Potassium Level 3.7 mmol/L (3.5-5.1) Chloride Level 103 mmol/L (98-107) Carbon Dioxide Level 22 mmol/L (21-32) Anion Gap 14 (6-14) Blood Urea Nitrogen 6 mg/dL (7-20) L Creatinine 0.5 mg/dL (0.6-1.0) L Estimated GFR (Cockcroft-Gault) 157.3 BUN/Creatinine Ratio 12 (6-20) Glucose Level 105 mg/dL (70-99) H Calcium Level 9.0 mg/dL (8.5-10.1) Total Bilirubin 0.2 mg/dL (0.2-1.0) Aspartate Amino Transferase (AST) 13 U/L (15-37) L Alanine Aminotransferase (ALT) 21 U/L (14-59) Alkaline Phosphatase 60 U/L (46-116) Total Protein 6.9 g/dL (6.4-8.2) Albumin 2.9 g/dL (3.4-5.0) L Albumin/Globulin Ratio 0.7 (1.0-1.7) L Salicylates Level < 2.8 mg/dL (2.8-20.0) L Salicylate Last Dose Date Unknown Salicylate Last Dose Time Unknown Acetaminophen Level < 2 mcg/ml (10-30) L Acetaminophen Last Dose Date Unknown Acetaminophen Last Dose Time Unknown Ethyl Alcohol Level < 10 mg/dL (0-10) Urine Collection Type U cath Urine Color Yellow Urine Clarity Clear Urine pH 6.5 Urine Specific Olcott 1.025 Urine Protein Negative mg/dL (NEG-TRACE) Urine Glucose (UA) Negative mg/dL (NEG) Urine Ketones (Stick) Trace mg/dL (NEG) Urine Blood Negative (NEG) Urine Nitrite Negative (NEG) Urine Bilirubin Negative (NEG) Urine Urobilinogen Dipstick 0.2 mg/dL (0.2 mg/dL) Urine Leukocyte Esterase Negative (NEG) Urine RBC 1-2 /HPF (0-2) Urine WBC 1-4 /HPF (0-4) Urine Squamous Epithelial Cells Mod /LPF Urine Bacteria Few /HPF (0-FEW) Urine Mucus Marked /LPF Urine Opiates Screen Neg (NEG) Urine Methadone Screen Neg (NEG) Urine Barbiturates Neg (NEG) Urine Phencyclidine Screen Neg (NEG) Urine Amphetamine/Methamphetamine Neg (NEG) Urine Benzodiazepines Screen Neg (NEG) Urine Cocaine Screen Neg (NEG) Urine Cannabinoids Screen Pos (NEG) Urine Ethyl Alcohol Neg (NEG) Laboratory Tests 06/03/19 05:04 Laboratory Tests 06/03/19 05:04 (SEBASTIÁN LOPES MD) Lab Values Laboratory Tests Test 06/03/19 05:04 06/03/19 05:57 White Blood Count 10.2 x10^3/uL (4.0-11.0) Red Blood Count 3.63 x10^6/uL (3.50-5.40) Hemoglobin 10.5 g/dL (12.0-15.5) L Hematocrit 30.8 % (36.0-47.0) L Mean Corpuscular Volume 85 fL (79-100) Mean Corpuscular Hemoglobin 29 pg (25-35) Mean Corpuscular Hemoglobin Concent 34 g/dL (31-37) Red Cell Distribution Width 13.7 % (11.5-14.5) Platelet Count 384 x10^3/uL (140-400) Neutrophils (%) (Auto) 84 % (31-73) H Lymphocytes (%) (Auto) 8 % (24-48) L Monocytes (%) (Auto) 7 % (0-9) Eosinophils (%) (Auto) 1 % (0-3) Basophils (%) (Auto) 0 % (0-3) Neutrophils # (Auto) 8.6 x10^3/uL (1.8-7.7) H Lymphocytes # (Auto) 0.8 x10^3/uL (1.0-4.8) L Monocytes # (Auto) 0.7 x10^3/uL (0.0-1.1) Eosinophils # (Auto) 0.1 x10^3/uL (0.0-0.7) Basophils # (Auto) 0.0 x10^3/uL (0.0-0.2) Maternal Serum HCG Beta Subunit 27344 mIU/mL (0-5) H Sodium Level 139 mmol/L (136-145) Potassium Level 3.7 mmol/L (3.5-5.1) Chloride Level 103 mmol/L (98-107) Carbon Dioxide Level 22 mmol/L (21-32) Anion Gap 14 (6-14) Blood Urea Nitrogen 6 mg/dL (7-20) L Creatinine 0.5 mg/dL (0.6-1.0) L Estimated GFR (Cockcroft-Gault) 157.3 BUN/Creatinine Ratio 12 (6-20) Glucose Level 105 mg/dL (70-99) H Calcium Level 9.0 mg/dL (8.5-10.1) Total Bilirubin 0.2 mg/dL (0.2-1.0) Aspartate Amino Transferase (AST) 13 U/L (15-37) L Alanine Aminotransferase (ALT) 21 U/L (14-59) Alkaline Phosphatase 60 U/L (46-116) Total Protein 6.9 g/dL (6.4-8.2) Albumin 2.9 g/dL (3.4-5.0) L Albumin/Globulin Ratio 0.7 (1.0-1.7) L Salicylates Level < 2.8 mg/dL (2.8-20.0) L Salicylate Last Dose Date Unknown Salicylate Last Dose Time Unknown Acetaminophen Level < 2 mcg/ml (10-30) L Acetaminophen Last Dose Date Unknown Acetaminophen Last Dose Time Unknown Ethyl Alcohol Level < 10 mg/dL (0-10) Urine Collection Type U cath Urine Color Yellow Urine Clarity Clear Urine pH 6.5 Urine Specific Olcott 1.025 Urine Protein Negative mg/dL (NEG-TRACE) Urine Glucose (UA) Negative mg/dL (NEG) Urine Ketones (Stick) Trace mg/dL (NEG) Urine Blood Negative (NEG) Urine Nitrite Negative (NEG) Urine Bilirubin Negative (NEG) Urine Urobilinogen Dipstick 0.2 mg/dL (0.2 mg/dL) Urine Leukocyte Esterase Negative (NEG) Urine RBC 1-2 /HPF (0-2) Urine WBC 1-4 /HPF (0-4) Urine Squamous Epithelial Cells Mod /LPF Urine Bacteria Few /HPF (0-FEW) Urine Mucus Marked /LPF Urine Opiates Screen Neg (NEG) Urine Methadone Screen Neg (NEG) Urine Barbiturates Neg (NEG) Urine Phencyclidine Screen Neg (NEG) Urine Amphetamine/Methamphetamine Neg (NEG) Urine Benzodiazepines Screen Neg (NEG) Urine Cocaine Screen Neg (NEG) Urine Cannabinoids Screen Pos (NEG) Urine Ethyl Alcohol Neg (NEG) Laboratory Tests 06/03/19 05:04 Laboratory Tests 06/03/19 05:04 (TAHIR BRANDT DO) EKG EKG [] (TAHIR BRANDT DO) Radiology/Procedures Radiology/Procedures [] (TAHIR BRANDT DO) Course & Med Decision Making Course & Med Decision Making Pertinent Labs and Imaging studies reviewed. (See chart for details) [] Patient evaluated. Treatment with IVF and Zofran. Labs pending. Patient to be evaluated by PAT. Patient signed out to Dr Lopes pending labs, re-evaluation, and psychiatric evaluation. (TAHIR BRANDT DO) Course & Med Decision Making @0650: Patient's care transferred to pr at 0600. Patient is at 17 weeks of gestation complaining of hyperemesis gravidarum and suicidal ideation. Labs showed dilutional anemia and positive marijuana in UDS. Patient states she suicidal since this morning without having any plan. Patient denies history of previous suicidal ideation or mental hospitalization. Patient denies hallucination and homicidal ideation. Patient had tachycardia with heart rate of 120. Another liter of normal saline was ordered. PAT team product tester fiberglass is here to evaluated the patient. @0800: Patient was evaluated by PAT team product tester fiberglass and did not have criteria for inpatient treatment. Resources was provided. Patient has case management coordinator and her cousinis in the ER and willing to taking care of her. Safety plan was provided. Patient tolerated oral intake. Patient states he had heart rate more than 100 after 2 L of IV fluid without source of infection. Patient is stable blood pressure and respirations rate and O2 sats. Prescription for Zofran was given and patient was advised to follow-up with her CLOTH DESIZING RANGE TENDER for hyperemesis gravidarum. I've spoken with the patient and/or caregivers. I've explained the patient's condition, diagnosis and treatment plan based on information available to me at this time. I've answered the patient's and/or caregivers questions and addressed any concerns. The patient and/or caregivers have a good understanding the patient's diagnosis, condition and treatment plan as can be expected at this point. Vital signs have been stabilized. The patient's condition is stable for discharge from the emergency department. The patient will pursue further outpatient evaluation with her primary care provider or other designated consulting physician as outlined in the discharge instructions. Patient and/or caregivers are agreeable to this plan of care and follow-up instructions have been explained in detail. The patient and/or caregivers have received these instructions in written format and expressed understanding of these discharge instructions. The patient and her caregivers are aware that if any significant change in condition or worsening of symptoms should prompt him to immediately return to this of the closest emergency department. If an emergent department is not readily available I would encourage him to call 911. (SEBASTIÁN LOPES MD) Dragon Disclaimer Dragon Disclaimer This electronic medical record was generated, in whole or in part, using a voice recognition dictation system. (TAHIR BRANDT DO) Departure Departure Impression: Primary Impression: Hyperemesis complicating , antepartum Additional Impressions: Suicidal ideation Sinus tachycardia Disposition: HOME, SELF-CARE (at 0 755) Condition: IMPROVED Referrals: UNKNOWN PCP NAME (PCP) Patient Instructions: Diet - Hyperemesis Gravidarum, Hyperemesis Gravidarum, Suicidal Feelings, How to Help Yourself Additional Instructions: Drink plenty of liquids Follow-up with your CLOTH DESIZING RANGE TENDER physician in 2-3 days Return to ER if not getting better Follow-up with safety plan and your case management Thank you for visiting [facility]. We appreciate you trusting us with your care. If any additional problems come up don't hesitate to return to visit us. Please follow up with your primary care provider so they can plan additional care if needed and know about the problem that you had. If symptoms worsen come back to the Emergency Department. Any concerning symptoms that start such as chest pain, shortness of air, weakness or numbness on one side of the body, running high fevers or any other concerning symptoms return to the ER. Scripts Ondansetron Hcl (ZOFRAN) 4 Mg Tablet 1 TAB PO PRN Q6-8HRS for nausea, #12 TAB Prov: SEBASTIÁN OLPES MD 06/03/19 Problem Qualifiers TAHIR BRANDT I DO Jun 03, 2019 05:19 SEBASTIÁN LOPES MD Jun 03, 2019 06:58
[2019-06-03 05:25] LABS: BASO % 0 % (0-3); EOS # 0.1 x10^3/uL (0.0-0.7); EOS % 1 % (0-3); HEMATOCRIT 30.8 % (36.0-47.0); HEMOGLOBIN 10.5 g/dL (12.0-15.5); LYMPH # 0.8 x10^3/uL (1.0-4.8); LYMPH % 8 % (24-48); MEAN CORPUSCULAR HEMOGLOBIN 29 pg (25-35); MEAN CORPUSCULAR HGB CONC 34 g/dL (31-37); MEAN CORPUSCULAR VOLUME 85 fL (79-100); MONO # 0.7 x10^3/uL (0.0-1.1); MONO % 7 % (0-9); NEUT # 8.6 x10^3/uL (1.8-7.7); NEUT % 84 % (31-73); PLATELET COUNT 384 x10^3/uL (140-400); RED BLOOD COUNT 3.63 x10^6/uL (3.50-5.40); RED CELL DISTRIBUTION WIDTH 13.7 % (11.5-14.5); WHITE BLOOD COUNT 10.2 x10^3/uL (4.0-11.0)
[2019-06-03] MEDS ORDERED: ONDANSETRON PF 4 MG/2 ML VIAL. IVP ONE (05:30)
[2019-06-03] MEDS ORDERED: IV NORMAL SALINE 1000ML BAG 1,000 ML IV ONE ×2 (05:30→07:00)
[2019-06-03 05:34] LABS: CREATININE 0.5 mg/dL (0.6-1.0); GFR 157.3; POTASSIUM 3.7 mmol/L (3.5-5.1)
[2019-06-03 05:40] LABS: ACETAMIN < 2 mcg/ml (10-30); ALBUMIN 2.9 g/dL (3.4-5.0); ALBUMIN/GLOBULIN RATIO 0.7 (1.0-1.7); ETHANOL < 10 mg/dL (0-10); SALIC < 2.8 mg/dL (2.8-20.0); TOTAL BILIRUBIN 0.2 mg/dL (0.2-1.0); TOTAL PROTEIN 6.9 g/dL (6.4-8.2)
[2019-06-03 06:15] LABS: BILIRUBIN,URINE NEGATIVE (NEG); CLARITY,URINE CLEAR; COLOR,URINE YELLOW; NITRITE,URINE NEGATIVE (NEG); PH,URINE 6.5; PROTEIN,URINE NEGATIVE (NEG-TRACE); UROBILINOGEN,URINE 0.2 mg/dL (0.2 mg/dL)
[2019-06-03 06:24] LABS: BARBITURATES NEG (NEG); BENZODIAZEPINES NEG (NEG); CANNABINOIDS POS (NEG); COCAINE NEG (NEG); METHADONE NEG (NEG); OPIATES NEG (NEG); PHENCYCLIDINE NEG (NEG)
[2019-06-03 06:25] LABS: AMPHETAMINE/METHAMPHETAMINE NEG (NEG)
[2019-06-03 06:27] LABS: SQUAMOUS EPITHELIAL CELL,UR MOD /LPF
[2019-06-03 06:29] LABS: BACTERIA,URINE FEW /HPF (0-FEW)
[2019-06-03] MEDS ORDERED: ACETAMINOPHEN 500 MG TABLET PO ONE (07:15)
[2019-06-03] MEDS ORDERED: ONDA4TAB7 PO (07:58)
[2019-06-03 08:00] VITALS: BP 140/64
[2019-06-03] MEDS ORDERED: OSEL75CA PO (22:04)
[2019-06-03] MEDS ORDERED: PROM25TA10 PO (22:04)
== END 2019-06-03 08:10 | disposition home or self-care (01) ==
LOC: ER 04:59
DX: O21.0 Mild hyperemesis gravidarum (principal); O99.342 Other mental disorders complicating pregnancy, second trimester; R45.851 Suicidal ideations; R00.0 Tachycardia, unspecified; O99.512 Diseases of the respiratory system complicating pregnancy, second trimester; J45.909 Unspecified asthma, uncomplicated; Z90.89 Acquired absence of other organs; Z3A.17 17 weeks gestation of pregnancy
CPT/HCPCS: 36415; 80053; 80307; 80329; 81001; 84702; 85025; 96361; 96374; 99283; G0480; J2405; J7030

== ENCOUNTER 2019-06-03 21:00 | Emergency (ER) | payer OTHER ==
[~2019-06-03] VITALS: Ht 162.6 cm; Wt 96.8 kg
[2019-06-03 21:22] VITALS: BP 133/67
[2019-06-03 21:52] LABS: INFLUENZA A PATIENT POSITIVE (NEGATIVE); INFLUENZA B PATIENT NEGATIVE (NEGATIVE)
[2019-06-03] MEDS ORDERED: OSELTAMIVIR 75 MG CAPSULE PO ONE ×2 (21:58→22:30)
[2019-06-03] MEDS ORDERED: PROMETHAZINE 12.5 MG TABLET. PO ONE (22:00)
[2019-06-03] MEDS ORDERED: PROM25TA10 PO (22:04)
[2019-06-03] MEDS ORDERED: OSEL75CA PO (22:04)
--- NOTE | 2019-06-03 22:04 | PHYS DOC ---
Past Medical History Past Medical History: Asthma, Other Additional Past Medical Histor: MISCARRIAGE 04/2016 Past Surgical History: Appendectomy Smoking Status: Never Smoker Alcohol Use: Occasionally Drug Use: Marijuana Adult General Chief Complaint Chief Complaint: SORE THROAT HPI HPI Patient is a 18 year old female currently 17 weeks who presents to the ED today complaining of fever that began today as well as nausea and vomiting in . Patient was discharged early this morning around 7:55 AM after being evaluated for nausea and vomiting as well as suicidal ideations. Patient denies any abdominal pain. Denies any hematemesis or melena since she was of discharged. She states she has taken Zofran which she was given today. Denies any abdominal pain. She reports following up with her RN CLINICAL DOCUMENTATION SPECIALIST. Review of Systems Review of Systems Constitutional: Reports fever Eyes: Denies change in visual acuity, redness, or eye pain [] HENT: Denies nasal congestion or sore throat [] Respiratory: Denies cough or shortness of breath [] Cardiovascular: No additional information not addressed in HPI [] GI: Reports nausea and vomiting and . Denies abdominal pain, bloody stools or diarrhea [] : Denies dysuria or hematuria [] Musculoskeletal: Denies back pain or joint pain [] Integument: Denies rash or skin lesions [] Neurologic: Denies headache, focal weakness or sensory changes [] All other systems were reviewed and found to be within normal limits, except as documented in this note. Current Medications Current Medications Current Medications Medications (Trade) Dose Ordered Sig/Delia Start Time Stop Time Status Last Admin Dose Admin Acetaminophen (Tylenol) 1,000 mg 1X ONCE 06/03/19 22:00 06/03/19 22:01 UNV Oseltamivir Phosphate (Tamiflu) 75 mg 1X STAT 06/03/19 21:55 06/03/19 21:56 UNV Promethazine HCl (Phenergan) 12.5 mg 1X ONCE 06/03/19 22:00 06/03/19 22:01 06/03/19 21:41 12.5 MG Allergies Allergies Allergies Coded Allergies Type Severity Reaction Last Updated Verified No Known Drug Allergies 09/23/15 No Physical Exam Physical Exam Constitutional: Well developed, well nourished, no acute distress, non-toxic appearance. [] HENT: Normocephalic, atraumatic, bilateral external ears normal, oropharynx moist, no oral exudates, nose normal. [] Eyes: PERRLA, EOMI, conjunctiva normal, no discharge. [] Neck: Normal range of motion, no tenderness, supple, no stridor. [] Cardiovascular:Heart rate regular rhythm, no murmur [] Lungs & Thorax: Bilateral breath sounds clear to auscultation [] Abdomen: Bowel sounds normal, soft, no tenderness, no masses, no pulsatile masses. [] Skin: Warm, dry, no erythema, no rash. [] Back: No tenderness, no CVA tenderness. [] Extremities: No tenderness, no cyanosis, no clubbing, ROM intact, no edema. [] Neurologic: Alert and oriented X 3, normal motor function, normal sensory function, no focal deficits noted. [] Psychologic: Affect normal, judgement normal, mood normal. [] Current Patient Data Vital Signs Vital Signs Date Time Temp Pulse Resp B/P (MAP) Pulse Ox O2 Delivery O2 Flow Rate FiO2 06/03/19 21:22 102.0 140 20 133/67 (89) 94 Room Air 102.0 Lab Values Laboratory Tests Test 06/03/19 21:13 Influenza Type A Antigen Positive (NEGATIVE) Influenza Type B Antigen Negative (NEGATIVE) EKG EKG [] Radiology/Procedures Radiology/Procedures [] Course & Med Decision Making Course & Med Decision Making Pertinent Labs and Imaging studies reviewed. (See chart for details) This is a 18-year-old female patient currently 17 weeks presenting to the ED today complaining of a fever that began today. Patient was seen earlier in the ED for nausea and vomiting in and was discharged with Zofran which she feels is not effective. She had full workup early this morning which was negative. She arrives in the ED with a temperature of 102.1. Negative rapid strep, positive influenza A. She was given Tamiflu,promethazine as well as tylenol in the Ed. D/c with Tamiflu and promethazine. F/u with OB in the course of this week or next week. Dragon Disclaimer Dragon Disclaimer This electronic medical record was generated, in whole or in part, using a voice recognition dictation system. Departure Departure Impression: Primary Impression: Influenza A Additional Impressions: Fever Vomiting during Disposition: 01 HOME, SELF-CARE Condition: STABLE Referrals: NO PCP (PCP) NANO NEIL Jr, MD Call his office tomorrow and set up a follow-up appointment Patient Instructions: Diet - Hyperemesis Gravidarum, Influenza A (H1N1) Additional Instructions: You tested positive for influenza A. Take the prescribed Tamiflu as ordered. Please take Tylenol every 4 hours as needed for fever or pain. Take the prescribed promethazine as needed for nausea/ vomiting. Follow-up with your RN CLINICAL DOCUMENTATION SPECIALIST in the course of this week or next week. Scripts Oseltamivir Phosphate (TAMIFLU) 75 Mg Capsule 1 CAP PO BID, #9 CAP Prov: WAI SYLVESTER APRN 06/03/19 Promethazine Hcl (PROMETHAZINE HCL) 25 Mg Tablet 1 TAB PO PRN Q6HRS, #20 TAB Prov: WAI SYLVESTER APRN 06/03/19 Problem Qualifiers Additional Impressions: Fever Fever type: unspecified Qualified Codes: R50.9 - Fever, unspecified WAI SYLVESTER APRN Jun 03, 2019 22:04
[2019-06-03] MEDS ORDERED: ACETAMINOPHEN 500 MG TABLET PO ONE (22:30)
== END 2019-06-03 22:09 | disposition home or self-care (01) ==
LOC: ER 21:00
DX: O98.512 Other viral diseases complicating pregnancy, second trimester (principal); J10.1 Influenza due to other identified influenza virus with other respiratory manifestations; O21.9 Vomiting of pregnancy, unspecified; O99.512 Diseases of the respiratory system complicating pregnancy, second trimester; J45.909 Unspecified asthma, uncomplicated; Z3A.17 17 weeks gestation of pregnancy
CPT/HCPCS: 87070; 87804; 87880; 99283; Q0169

== ENCOUNTER → 2019-06-18 | Outpatient (CLI) | payer OTHER ==
[2019-05-16 16:23] VITALS: BP_DIAS 67
[2019-06-03 21:22] VITALS: BP_SYST 133
[~2019-06-18] MED LIST changes: +OSEL75CA PO; +PROM25TA10 PO
--- NOTE | 2019-06-18 16:50 | RAD ---
EXAM: Obstetrics sonogram. HISTORY: Uterine size and dates discrepancy. TECHNIQUE: Sonographic imaging of a gravid uterus was performed. COMPARISON: None. FINDINGS: There is a single intrauterine fetus in cephalic presentation with a normal heart rate of 147 bpm. The amniotic fluid index is normal at 10.9 cm. The cervix is closed and measures 4.0 cm. There is a posterior placenta without evidence of placenta previa. The stomach, kidneys, bladder, spine, brain, facial profile and heart are unremarkable. There is a suspected three-vessel umbilical cord. However, the umbilical cord and cord insertion are not well seen. The biparietal diameter is 4.75 cm, corresponding with 20 weeks and 3 days. The head circumference is 17.66 cm, corresponding with 20 weeks and 1 day. The abdominal circumference is 14.87 cm, corresponding with 20 weeks and 1 day. The femoral length is 3.36 cm, corresponding with 20 weeks and 4 days. The estimated gestational age based on combined ultrasound measurements is 20 weeks and 2 days with a due date of 11/03/2019. The estimated weight is 345 g. The estimated gestational age based on LMP is 18 weeks and 5 days. IMPRESSION: 1. Single intrauterine fetus in cephalic presentation with a normal heart rate and gestational age patient ultrasound measurements of 20 weeks and 2 days. This is 1 week and 4 days later than the gestational age based on LMP. 2. Suboptimal evaluation of a three-vessel umbilical cord and cord insertion. The remainder the anatomy survey is unremarkable. Electronically signed by: Esperanza Reeves MD (06/18/2019 4:47 PM) [id number]
== END ==
LOC: US 12:15
PROVIDERS: ATTEND Obstetrics & Gynecology
DX: O26.842 Uterine size-date discrepancy, second trimester (principal); Z3A.20 20 weeks gestation of pregnancy
CPT/HCPCS: 76805

== ENCOUNTER 2019-08-09 20:02 | Observation (INO) | payer OTHER ==
[2019-08-09] MEDS ORDERED: ONDANSETRON PF 4 MG/2 ML VIAL. IVP PRN (20:15)
[2019-08-09] MEDS ORDERED: IV RINGERS,LACTATED 1000ML 1,000 ML IV PRN (20:15)
[2019-08-09 20:28] LABS: BILIRUBIN,URINE NEGATIVE (NEG); CLARITY,URINE CLOUDY; COLOR,URINE YELLOW; NITRITE,URINE NEGATIVE (NEG); PH,URINE 7.5 (<5.0-8.0); PROTEIN,URINE NEGATIVE (NEG-TRACE); UROBILINOGEN,URINE 0.2 mg/dL (0.2 mg/dL)
[2019-08-09 20:34] LABS: AMORPHOUS SEDIMENT,UR PRESENT /HPF; AMPHETAMINE/METHAMPHETAMINE NEG (NEG); BACTERIA,URINE MODERATE /HPF (0-FEW); BARBITURATES NEG (NEG); BENZODIAZEPINES NEG (NEG); CANNABINOIDS NEG (NEG); COCAINE NEG (NEG); METHADONE NEG (NEG); OPIATES NEG (NEG); PHENCYCLIDINE NEG (NEG); RBC,URINE 0 /HPF (0-2); SQUAMOUS EPITHELIAL CELL,UR MOD /LPF
== END 2019-08-09 21:10 | disposition home or self-care (01) ==
LOC: 3 SO LND 20:02
PROVIDERS: ADMIT Obstetrics & Gynecology; ATTEND Obstetrics & Gynecology
DX: O21.2 Late vomiting of pregnancy (principal); O62.9 Abnormality of forces of labor, unspecified; O26.892 Other specified pregnancy related conditions, second trimester; R10.2 Pelvic and perineal pain; Z3A.27 27 weeks gestation of pregnancy; Z79.899 Other long term (current) drug therapy
CPT/HCPCS: 80307; 81001; 87086; G0378; G0379